=== PATIENT | male | born 1995 | race Caucasian/White ===

== ENCOUNTER 2019-01-16 08:10 | Day surgery (SDC) | payer OTHER ==
[~2019-01-16] VITALS: Wt 90.1 kg
[~2019-01-16 08:10] MED LIST: CEPH500 PO; Crutch1 EACH MISC; HYDACE5325 PO; HYDHCL25 PO; IBUP600 PO; IBUP800 PO; ONDA4ODT MM; PENVK250 PO; PENVK500 PO; Percocet 5-3251 EACH PO; Permethrin60 GM TP; RXTRAM50 PO; TRAM50 PO; Zovirax200 MG PO; Zovirax400 MG PO
--- NOTE | 2019-01-16 10:07 | NUR ---
[facility] ADMISSION STARTED. History, Chart, Medications and Allergies reviewed before start of procedure.Lungs clear T/O to Auscultation. Patient confirms NPO status and agrees with scheduled surgery. Patient States Post-Procedure ride home has been arranged.
--- NOTE | 2019-01-16 15:29 | NUR ---
Patient up to Ambulate independently. Gait steady. Discharge instructions reviewed with patient. Patient verbalizes understanding. Copy given to patient to take home. Patient States Post-Procedure ride home has been arranged. Discharged via wheelchair to private car for ride home.
--- NOTE | 2019-01-16 16:40 | NUR ---
01/16/19 [facility] Kathy Haq VERIFICATIONS: EDIT CHART.
== END 2019-01-16 23:17 | disposition home or self-care (01) ==
LOC: ORSCMMR 08:10 → ORD 11:45 → ORSCMMR 11:45
PROVIDERS: Surgery
PROC: 0YU60JZ Supplement Left Inguinal Region with Synthetic Substitute, Open Approach (ICD-10-PCS; principal; 2019-01-16 12:30)
DX: K40.90 Unilateral inguinal hernia, without obstruction or gangrene, not specified as recurrent (principal); F17.210 Nicotine dependence, cigarettes, uncomplicated
CPT/HCPCS: C1781; J0690; J1100; J2250; J2405; J2704; J3010; J7120